=== PATIENT | female | born 1970 | race Native Hawaiian/Other Pacific Islander ===

== ENCOUNTER 2019-04-04 09:02 | Outpatient (CLI) | payer BC, SELFPAY ==
--- NOTE | 2019-04-04 | ECG_ITS ---
Measurements Intervals [place] Rate: 72 P: 52 WV: 133 QRS: 70 QRSD: 88 T: 67 QT: 362 QTc: 397 Interpretive Statements SINUS RHYTHM BORDERLINE ST-T WAVE ABNORMALITY- DIFFUSE LEADS BORDERLINE ECG Electronically Signed On 04-04-2019 9:31:20 [employer] CHIEF'S AIDE by Cleve Hare D.O.
== END 2019-04-04 09:03 | disposition home or self-care (01) ==
PROVIDERS: PCP Student in an Organized Health Care Education/Training Program; Visit Provider Orthopaedic Surgery
DX: Z01.810 Encounter for preprocedural cardiovascular examination (principal); Z01.812 Encounter for preprocedural laboratory examination; M65.312 Trigger thumb, left thumb; I10 Essential (primary) hypertension
CPT/HCPCS: 93005

== ENCOUNTER 2023-05-19 10:56 | Emergency (ER) | payer BC, SELFPAY ==
[2023-05-19 11:28] VITALS: BP 170/91; PULSE 85; RESP 16; TEMP 36.9; O2SAT 100
--- NOTE | 2023-05-19 11:44 | ED.URI ---
HPI - URI/Sore Throat General Chief Complaint: Upper Respiratory Infection Stated Complaint: Upper Respiratory Symptoms Time Seen by Provider: 05/19/23 11:40 Source: patient, RN notes reviewed and old records reviewed Mode of arrival: ambulatory Limitations: no limitations History of Present Illness HPI Narrative: 52 year old female presents to [facility] care with complaints of 3 weeks of sinus congestion, drainage, sinus pressure to face and frontal headache with some cough which is dry.. Patient reports history of sinus problem and has been taking Zyrtec and also using Zyrtec D regularly with no improvement in her symptoms. Patient reports that she has history of sinus problems and allergies. Patient reports that she did have some fevers when she initially was ill but no know recent fever, did have chills last night. MD elicited complaint: cough, rhinorrhea, nasal congestion and sinus pain Pertinent past history: sinusitis and seasonal allergies Onset (ago): week(s) (3) Severity: moderate Description of mucous: clear Able to tolerate fluids by mouth: Yes Treatments prior to arrival: other (Zyrtec and Zyrtec D) Related Data Home Medications Medication Instructions Recorded Confirmed cetirizine 10 mg tablet (Zyrtec) 10 mg PO DAILY 01/26/05/19/23 fluoxetine 20 mg tablet 20 mg PO DAILY 05/19/23 05/19/23 meloxicam 15 mg tablet 15 mg PO DAILY 05/19/23 05/19/23 valsartan 160 mg tablet 160 mg PO DAILY 05/19/23 05/19/23 Allergies Allergy/AdvReac Type Severity Reaction Status Date / Time aspirin Allergy Unknown Swelling Verified 05/19/23 11:21 Review of Systems Review of Systems: CONSTITUTIONAL: Reports malaise, chills, no sweats, no known recent fever. EYES: Denies visual changes, redness, or discharge. ENT: Reports rhinorrhea, congestion, sinus pain, no otalgia and no sore throat. CARDIOVASCULAR: Denies chest pain, palpitations, or edema. RESPIRATORY: Reports cough.? Denies dyspnea. GASTROINTESTINAL: Denies abdominal pain, nausea, vomiting, diarrhea SKIN: Denies rash or itching. MUSCULOSKELETAL: Denies myalgia. NEUROLOGIC: Frontal headache. All systems reviewed & are unremarkable except as noted in HPI and below PMFSH Past Medical History Medical History (Updated 05/20/23 @ 00:13 by Background Daemon) Allergies EUGENE positive Arthritis of carpometacarpal (CMC) joint of both thumbs Bilateral hand pain Fatigue (~02/2020) Hypertension Trigger finger of left thumb Surgical History Surgical History Delivery by section S/P trigger finger release Family History Family History Father Hypertension Mother Diabetes mellitus Grandparent Heart disease Father Hypertension Family history of elevated blood lipids Mother Hypertension Social History Social History (Updated 05/20/23 @ 08:19 by Kanika Crystal NP) Smoking status: Never smoker Alcohol intake: never Substance use: never Substance use type: does not use Living arrangements: with family Gender identity (if verbalized by the patient): Female Comments At time of signature, agree with nursing past medical, surgical, social and family history. There is no relevant family history pertinent to the presenting complaint Exam Narrative: GENERAL: Well-appearing, well-nourished, and in no acute distress. HEAD: Normocephalic EYES: PERRLA, conjunctivae clear ENT: Nares clear and swollen, turbinates edematous and erythematous, clear discharge,sinus pressure and frontal headache. Mucous membranes moist. TM pearly ward with dull light reflex bilaterally; no tragal tenderness. Oropharynx erythematous without lesions. Tonsils not enlarged and without exudate, no drooling, no hoarseness, no trismus, uvula midline.post nasal drainage NECK: Supple. No lymphadenopathy CHEST: Clear to auscultation, breath sounds e
== END 2023-05-19 12:15 | disposition home or self-care (01) ==
PROVIDERS: Emergency Provider Registered Nurse; PCP Student in an Organized Health Care Education/Training Program
DX: J32.9 Chronic sinusitis, unspecified (principal); I10 Essential (primary) hypertension; M18.0 Bilateral primary osteoarthritis of first carpometacarpal joints
CPT/HCPCS: 99213; G0463

== ENCOUNTER 2024-04-13 15:06 | Outpatient (RCR) | payer BC, SELFPAY ==
--- NOTE | 2024-04-13 17:05 | OTOPEVAL1 ---
Assessment and note entered by Noemy Rodriguez, OT Evaluation Information Assessment Status Evaluation Diagnosis post operative trigger finger of R hand Subjective Information Pt. reports she was in pain from surgery on Mar 16, having difficulty with things such as cutting up food while cooking. Pt. states she looked up exercises online this past weekend which she has been doing, and has relieved her pain. Pt . states she has been compensating with use of L hand ( is right hand dominant). Pt. states she just wants it to heal, and she is frustrated by this second trigger finger release, previously on L hand. 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 Pt reports pain with stiffness when in prolonged position Reported Pain Level Pain Score 5: Self Report Assessment OT Clinical Summary Pt. is s/p trigger finger release of R 4th finger, surgery 03/16/24. Pt. is R hand dominant and presents with decreased active ROM in R 4th finger and decreased gross strength in hand compared to baseline function. Pt. will benefit from skilled OT service to facilitate increased ROM, strength, dexterity, and functional use, with decreased pain , returning pt. to greatest level of functional capacity. Plan of Care Interventions Therapeutic Exercise,Manual Therapy,Therapeutic Activities,Self-Care/Home Management,Ultrasound, Paraffin OT Services Indicated Yes Treatment Frequency and 1 x/week for 4 weeks Duration These treatments will address the objective and functional deficits as defined above. The patient will be advanced safely and appropriately in order for the patient to progress towards his/her prior level of function. Additional exercises will be introduced and as well as a comprehensive home exercise program upon discharge, if needed, ?to ensure carryover of functional gains achieved in the clinic. This treatment plan has been reviewed and agreement upon by the patient.
--- NOTE | 2024-06-14 09:38 | OTOPDC ---
Assessment and note entered by Noemy Rodriguez, OT Evaluation Information Assessment Status Discharge - Pt Not Present Assessment OT Clinical Summary Pt. attended evaluation s/p trigger finger release on 04/13/24. Pt. has not returned for treatment. Discharging from treatment list.
== END 2024-06-14 10:41 | disposition home or self-care (01) ==
LOC: ANHOT 15:06
PROVIDERS: PCP Student in an Organized Health Care Education/Training Program
DX: M65.341 Trigger finger, right ring finger (principal); Z98.890 Other specified postprocedural states
CPT/HCPCS: 97110; 97140; 97165